=== PATIENT | male | born 1940 | race Hispanic/Latino ===

== ENCOUNTER → 2020-05-02 | Outpatient (CLI) | payer OTHER | END | disposition home or self-care (01) | LOC: SHCH 11:42 | PROVIDERS: ATTEND Internal Medicine Cardiovascular Disease | DX: I65.23 Occlusion and stenosis of bilateral carotid arteries (principal); I70.0 Atherosclerosis of aorta; I25.10 Atherosclerotic heart disease of native coronary artery without angina pectoris | CPT/HCPCS: 93880 ==

== ENCOUNTER 2020-08-17 10:14 | Day surgery (SDC) | payer OTHER ==
[2020-08-15 16:19] LABS: BASOPHILS % (AUTO) 0.4 % (0.0-5.0); EOSINOPHILS % (AUTO) 3.5 % (0.0-8.0); HEMATOCRIT 38.5 % (42-54); LYMPHOCYTES % (AUTO) 24.2 % (21.0-51.0); MEAN CORPUSCULAR HEMOGLOBIN 33.3 pg (27.0-33.0); MEAN CORPUSCULAR HGB CONC 32.2 g/dL (32.0-36.0); MEAN CORPUSCULAR VOLUME 103.5 fL (79-99); MONOCYTES % (AUTO) 10.7 % (3.0-13.0); NEUTROPHILS % (AUTO) 60.8 % (40.0-77.0); PLATELET COUNT (AUTO) 203 K/uL (130-400); RED BLOOD CELL COUNT(AUTO) 3.72 MIL/uL (4.50-6.20); RED CELL DISTRIBUTION WIDTH 15.3 % (11.0-15.5); WHITE BLOOD COUNT (AUTO) 5.2 K/uL (4.8-10.8)
[2020-08-15 16:20] LABS: APPEARANCE,URINE Clear (CLEAR); BILIRUBIN,URINE Negative (NEGATIVE); COLOR,URINE Yellow (YELLOW); GLUCOSE, URINE (UA) 250 mg/dL (NEGATIVE); KETONES,URINE Negative (NEGATIVE); LEUKOCYTE ESTERASE ,URINE Trace (NEGATIVE); NITRATE,URINE Negative (NEGATIVE); OCCULT BLOOD,URINE Negative (NEGATIVE); PH,URINE >=9.0 (5.0-8.0); PROTEIN,URINE 300 mg/dL (NEGATIVE); UROBILINOGEN,URINE 0.2 mg/dL (0.2-1.0)
[2020-08-15 16:31] LABS: POTASSIUM 4.1 mmol/L (3.5-5.1)
[2020-08-15 16:37] LABS: CREATININE 9.1 mg/dL (0.5-1.5)
[2020-08-15 16:43] LABS: INR 1.02 (0.85-1.15); PROTHROMBIN TIME 11.1 SEC (9.6-11.6)
[2020-08-15 16:44] LABS: PARTIAL THROMBOPLASTIN TIME 25.8 SEC (26.3-35.5)
[2020-08-15 16:53] LABS: BACTERIA,URINE Few /HPF (None Seen); MUCUS,URINE Few LPF (None Seen); SQUAMOUS EPITHELIAL CELL,UR Moderate /HPF (0-2)
[2020-08-16 14:39] VITALS: BP 124/61
[~2020-08-17] VITALS: Ht 165.1 cm; Wt 72.6 kg
[2020-08-17] VITALS (9 sets, daily range): BP systolic 131–175; BP diastolic 45–66
[~2020-08-17 10:14] MED LIST: ATOR20TA65 PO; CARV25TA PO; DUTA1CPM4 PO; SODIUM CHLORIDE 0.9% 500ML 500 ML IV SCH; SUCR500T PO
[2020-08-17] MEDS ORDERED: MIDAZOLAM HCL 1 MG/ML 2ML VIAL ONE (11:58)
[2020-08-17] MEDS ORDERED: IOHEXOL-350 50ML VIAL IV ONE (11:58)
[2020-08-17] MEDS ORDERED: NITROGLYCERIN 2 MG/VIAL VIAL IV ONE (11:58)
[2020-08-17] MEDS ORDERED: IOHEXOL 350 MG/ML 100ML INFUS..BTL IV ONE (11:58)
[2020-08-17] MEDS ORDERED: FENTANYL CITRATE PF 50 MCG/1 ML 2ML VIAL ONE (11:58)
[2020-08-17] MEDS ORDERED: SODIUM BICARB 50MEQ 50ML VIAL 50 ML ONE (11:58)
[2020-08-17] MEDS ORDERED: NICARDIPINE HCL 25 MG/10 ML ML IV ONE (11:58)
[2020-08-17] MEDS ORDERED: HEPARIN SODIUM 1000UNIT/ML 10ML VIAL ONE (11:58)
[2020-08-17] MEDS ORDERED: LIDOCAINE HCL 2% 20ML ONE (11:59)
[2020-08-17] MEDS ORDERED: BIVALIRUDIN 250 MG/VIAL IV ONE (12:43)
[2020-08-17] MEDS ORDERED: LABETALOL HCL 5 MG/ML 20ML VIAL IV ONE (12:53)
[2020-08-17] MEDS ORDERED: ENALAPRILAT DIHYDRATE 1.25 MG/ML 2ML VIAL IVP ONE ×2 (13:10→13:18)
== END 2020-08-17 17:10 | disposition home or self-care (01) ==
LOC: DAH 10:14
PROVIDERS: ATTEND Internal Medicine Cardiovascular Disease
DX: I25.119 Atherosclerotic heart disease of native coronary artery with unspecified angina pectoris (principal); I34.0 Nonrheumatic mitral (valve) insufficiency; I25.729 Atherosclerosis of autologous artery coronary artery bypass graft(s) with unspecified angina pectoris; I25.82 Chronic total occlusion of coronary artery; E11.9 Type 2 diabetes mellitus without complications; I11.0 Hypertensive heart disease with heart failure; I50.32 Chronic diastolic (congestive) heart failure; Z79.01 Long term (current) use of anticoagulants; Z79.899 Other long term (current) drug therapy; Z98.890 Other specified postprocedural states
CPT/HCPCS: 36415; 71045; 80048; 81001; 82948 ×2; 85025; 85610; 85730; 93005; 93459; A4215; A4216; A4221; A4222; A4223 ×3; A4606; A4663; C1760; C1769 ×2; C1894 ×2; J1644 ×2; J3490 ×7; Q9965 ×2; Q9967 ×2; J0583; J2250; J3010